=== PATIENT | male | born 1945 | race Caucasian/White ===

== ENCOUNTER 2016-06-07 15:06 | Observation (INO) | payer MEDICARE ==
--- NOTE | ~2016-06-07 | HP ---
History And Physical [id number] [place]. [address] NAME: FLOR PELAEZ : 45 STATUS : ADM IN [facility]#: [id number] AGE: 71 ADM/REG DATE : 06/07/16 MR#: [id number] REPORT SERV DATE: 06/08/16 DICTATED BY: NAHUN DUNAWAY DATE: 06/07/16 REPORT STATUS : Draft TRANSCRIBED BY: MODL DATE: 06/07/16 DATE OF ADMISSION: 06/07/2016 CARDIOLOGY ADMISSION HISTORY AND PHYSICAL IDENTIFYING DATA: The patient is a 71-year-old man with known coronary heart disease, status post previous percutaneous coronary intervention to the right coronary artery. CHIEF COMPLAINT: Substernal pressure/burning-type chest pain of 3 days duration. HISTORY OF PRESENT ILLNESS: Mr. Pelaez is a pleasant 71-year-old man with known coronary heart disease, diabetes, and dyslipidemia. The patient is followed by Dr. Barber. He was in his usual state of health until approximately three days ago. The patient began to experience a midsternal chest pain with radiation to the left arm. He describes this as a burning/pressure type sensation. It is associated with shortness of breath. The chest pain also is similar to the symptoms the patient experienced before his previous percutaneous coronary intervention in the year 2013. The patient reports that he is experiencing chest pain at this time with minimal activity, such as walking back and forth to the bathroom or even laughing. The patient's family brought him to the emergency room. At this time, the patient is chest pain-free. PAST MEDICAL HISTORY: 1. Coronary artery disease, status post previous percutaneous coronary intervention. 2. Type 2 diabetes. 3. Diabetic neuropathy. 4. Anxiety/depression. 5. Diverticulitis. 6. Obstructive sleep apnea. 7. Gout. PAST SURGICAL HISTORY: 1. Previous percutaneous coronary intervention of the right coronary artery with placement of a Xience drug-eluting stent in 2013. 2. Partial colectomy. 3. Cholecystectomy. 4. Appendectomy. 5. Right rotator cuff repair. 6. Excision of melanoma. SOCIAL HISTORY: The patient is an ex-smoker, but quit smoking 20 years ago. He denies alcohol or recreational drug use. He is with one daughter. FAMILY HISTORY: Noncontributory. ALLERGIES: THE PATIENT HAS DOCUMENTED ALLERGIES TO CYCLOBENZAPRINE, PENICILLIN, AND SHELLFISH. History And Physical [address] [place]. [address] NAME: FLOR PELAEZ : 45 STATUS : ADM IN PAT#: [id number] AGE: 71 ADM/REG DATE : 06/07/16 MR#: [id number] REPORT SERV DATE: 06/08/16 DICTATED BY: NAHUN DUNAWAY DATE: 06/07/16 REPORT STATUS : Draft TRANSCRIBED BY: CONCETTA DATE: 06/07/16 HOME MEDICATIONS: According to the most recent clinic note from Dr. Barber, the patient's home medications include the followin. Acetaminophen 1 g p.o. at bedtime. 2. Allopurinol 100 mg p.o. daily. 3. Amlodipine 5 mg p.o. daily. 4. Aspirin 81 mg daily. 5. Benadryl 25 mg twice daily as needed. 6. Betamethasone topical cream 0.05% applied to affected area as needed. 7. Buspirone 15 mg p.o. twice daily. 8. Carvedilol 3.125 mg p.o. twice daily. 9. Fluoxetine 80 mg p.o. daily. 10.Gabapentin 300 mg p.o. four times daily. 11.Glimepiride 2 mg p.o. daily. 12.Hydroxyzine 10 mg twice daily. 13.Potassium chloride 10 mEq extended release daily. 14.Losartan/hydrochlorothiazide 100/25 mg one tablet daily. 15.Lyrica 300 mg two capsules p.o. at bedtime. 16.Nexium 40 mg p.o. daily. 17.Sublingual nitroglycerin as needed. 18.Plavix 75 mg p.o. daily. 19.Simvastatin 20 mg p.o. at bedtime. 20.Singulair 10 mg p.o. daily. 21.Temazepam 60 mg p.o. at bedtime. 22.Triamcinolone cream as needed. 23.Vitamin B12 supplement. 24.Zyrtec 10 mg p.o. daily. REVIEW OF SYSTEMS: A complete 12-system review was performed. This is noncontributory except as noted in the history of present illness above. PHYSICAL EXAMINATION: VITAL SIGNS: Temperature is 98.7 degrees Fahrenheit, blood pressure is 141/65 mmHg, heart rate is 70 beats per minute and regular, respirations 14, and oxygen saturation is 98% on room air. CONSTITUTIONAL: The patient is a morbidly obese white man, who is in no acute distress. EYES: PERRL, EOMI, clear conjunctiva. HEAD/MNT: NCAT with moist mucous membranes and grossly normal hard and soft palate. NECK: Supple with no obvious thyromegaly or lymphadenopathy CARDIOVASCULAR: There is a regular rhythm with a normal S1 and a physiologically split second heart sound. No significant murmurs, rubs, or gallops are noted. PULMONARY: Clear to auscultation bilaterally, no wheezing, rales or rhonchi noted. No dullness to percussion. Non-labored. ABDOMINAL: Soft, non-tender, non-distended with no hepatosplenomegaly noted. EXTREMITIES: There is trace edema at the ankles with no significant clubbing or cyanosis. There is a 2+ right radial pulse. History And Physical [address] [address] NAME: FLOR PELAEZ : 45 STATUS : ADM IN [facility]#: [id number] AGE: 71 ADM/REG DATE : 06/07/16 MR#: [id number] REPORT SERV DATE: 06/08/16 DICTATED BY: NAHUN DUNAWAY DATE: 06/07/16 REPORT STATUS : Draft TRANSCRIBED BY: CONCETTA DATE: 06/07/16 MUSCULOSKELETAL: Grossly normal strength and range of motion in all extremities INTEGUMENTARY: Skin appears intact with no bruises, wounds or active lesions noted NEURO/PSYC: Alert and oriented x3, with no dysarthria, facial droop or lateralizing weakness noted. 12-LEAD EKG: The 12-lead EKG shows normal sinus rhythm with poor anterior R-wave progression suggestive of a previous anterior NV. There are nonspecific ST/T-wave abnormalities. LABORATORY DATA: Electrolytes show a sodium of 141, potassium 3.6, chloride 105, BUN 15, creatinine is 0.8, glucose is 133, calcium 8.8, magnesium 2.2. Cell count show a white blood cell count of 7.5, hemoglobin 13.8, hematocrit 41, and platelets 207. INR is 1.1. Troponin I is less than 0.02. ASSESSMENT AND PLAN: 1. Unstable angina: The patient is having typical symptoms of three days duration. He has multiple cardiovascular risk factors and known coronary heart disease. I feel coronary angiography is warranted. The patient agrees to proceed with coronary angiography and left heart catheterization. A right radial approach will be utilized. The patient has no overt contraindications to percutaneous coronary intervention. He has no history of bleeding disorders, and no elective surgery scheduled within the next year. 2. Type 2 diabetes: We will continue home medication regimen and sliding scale insulin. 3. Hypertension: The patient's blood pressure appears well-controlled at this time. Further recommendations pending results of the patient's cardiac catheterization. [facility] Nahun Dunaway MD / [id number] CC: MD Junior Quezada MD
[2016-06-07 13:30] LABS: BASOPHILS 0.9 %; BASOPHILS ABSOLUTE 0.07 10/3/uL (0.0-0.16); EOSINOPHILS 4.1 %; EOSINOPHILS ABSOLUTE 0.31 10/3/uL (0.0-0.53); ER CBC TAT 0 Hrs 05 Mins; HEMATOCRIT 41.4 % (40.0-51.0); HEMOGLOBIN 13.8 g/dL (13.6-17.8); IMMATURE GRANULOCYTES 0.1 %; IMMATURE GRANULOCYTES ABSOLUTE 0.01 10/3/uL (0.0-0.11); LYMPHOCYTES 26.1 %; LYMPHOCYTES ABSOLUTE 1.95 10/3/uL (0.67-4.30); MANUAL DIFF NO %; MEAN CORPUS HGB CONC 33.3 g/dL (32.0-36.0); MEAN CORPUSCULAR HEMOGLOB 27.4 pg (26.0-34.0); MEAN CORPUSCULAR VOLUME 82.1 fL (80-100); MEAN PLATELET VOLUME 11.9 fL (9.2-13.0); MONOCYTES 11.5 %; MONOCYTES ABSOLUTE 0.86 10/3/uL (0.21-1.20); NEUTROPHILS 57.3 %; NEUTROPHILS ABSOLUTE 4.27 10/3/uL (2.02-8.40); PLATELET COUNT 207 10/3/uL (150-400); RBC DISTRIBUTION WIDTH 14.7 % (12.0-16.0); RED CELL COUNT 5.04 10/6/uL (4.7-6.1); WHITE BLOOD CELLS 7.5 10/3/uL (4.5-10.5)
[2016-06-07 13:36] LABS: INTERNATIONAL NORMAL RATI 1.1 UNITS (-)
[2016-06-07 13:46] LABS: BUN (BLOOD UREA NITROGEN) 15 MG/DL (6-23); CALCIUM, SERUM 8.8 MG/DL (8.5-10.4); CHEST PAIN PROFILE TAT 0 Hrs 21 Mins; CHLORIDE, SERUM 105 MMOL/L (96-112); CO2 (CARBON DIOXIDE) 27 MMOL/L (24-34); GFR AFRICAN AMERICAN 104 ML/MIN (>=60); GFR NON AFRICAN AMERICAN 90 ML/MIN (>=60); GLUCOSE, SERUM 133 MG/DL (60-99); POTASSIUM, SERUM 3.6 MMOL/L (3.5-5.3); SODIUM, SERUM 141 MMOL/L (135-148); TROPONIN I <0.02 NG/ML (<0.05)
[~2016-06-07 15:06] MED LIST: ACET500CAP PO; ALLEGRA180 PO; AMARYL2 PO; ASAB PO; B12250T PO; BRILINTA90 MG PO; COREG3 PO; GLUCPH PO; HYDROMET1 ML PO; HYZAAR 100/25 T1 TAB PO; JANUVIA100 MG PO; KDUR10 PO; LYRICA150 MG PO; LYRICA300 MG PO; MICARDIS H80 MG/25 M PO; NEUR600 PO; NITROSTAT0.4 MG SL; NORV25 PO; NORV5 PO; PRILO PO; PRILOSEC40 MG PO; PROZAC40 MG PO; RESTORIL30 MG PO; SINGULAIR1 PO; VITAMIN B-122500 MCG SL; ZOCOR20 PO
[2016-06-07] MEDS ORDERED: PLAVIX PO (16:19)
[2016-06-07] MEDS ORDERED: LYRICA300 MG PO (16:20)
[2016-06-07] MEDS ORDERED: COREG3 PO (16:20)
[2016-06-07] MEDS ORDERED: ACET500CAP PO (16:21)
[2016-06-07] MEDS ORDERED: PROZAC40 MG PO (16:22)
[2016-06-07] MEDS ORDERED: ASAB PO (16:22)
[2016-06-07] MEDS ORDERED: VITAMIN B-122500 MCG SL (16:22)
[2016-06-07] MEDS ORDERED: ZOCOR20 PO (16:23)
[2016-06-07] MEDS ORDERED: HYZAAR 100/25 T1 TAB PO (16:23)
[2016-06-07] MEDS ORDERED: NEUR300 PO (16:28)
[2016-06-07] MEDS ORDERED: K-TABS10 MEQ PO (16:28)
[2016-06-07] MEDS ORDERED: BEN25 PO (16:29)
[2016-06-07] MEDS ORDERED: DIPROSONE CREAM15 GM TOP (16:29)
[2016-06-07] MEDS ORDERED: ZYRTEC ALLGY10 MG PO (16:29)
[2016-06-07] MEDS ORDERED: BUSPAR15 M1 PO (16:30)
[2016-06-07] MEDS ORDERED: AMARYL2 PO (16:30)
[2016-06-07] MEDS ORDERED: Z100 PO (16:30)
[2016-06-07] MEDS ORDERED: RESTORIL30 MG PO (16:30)
[2016-06-07] MEDS ORDERED: PRILO PO (16:30)
[2016-06-07 16:37] LABS: CHOL/HDL RATIO(NOT ORDER) 4.1 (0-5); CHOLESTEROL 149 MG/DL (< 200); HDL CHOLESTEROL 36 MG/DL (> 39); LDL CHOLESTEROL 54 MG/DL (< 130); NON-HDL CHOLESTEROL 113 MG/DL (< 160); TRIGLYCERIDE 297 MG/DL (< 150)
[2016-06-08 05:15] LABS: BASOPHILS 0.8 %; BASOPHILS ABSOLUTE 0.05 10/3/uL (0.0-0.16); EOSINOPHILS ABSOLUTE 0.38 10/3/uL (0.0-0.53); HEMATOCRIT 39.7 % (40.0-51.0); HEMOGLOBIN 12.8 g/dL (13.6-17.8); IMMATURE GRANULOCYTES 0.2 %; IMMATURE GRANULOCYTES ABSOLUTE 0.01 10/3/uL (0.0-0.11); LYMPHOCYTES 25.1 %; MANUAL DIFF NO %; MEAN CORPUS HGB CONC 32.2 g/dL (32.0-36.0); MEAN CORPUSCULAR HEMOGLOB 26.6 pg (26.0-34.0); MEAN CORPUSCULAR VOLUME 82.4 fL (80-100); MEAN PLATELET VOLUME 11.7 fL (9.2-13.0); MONOCYTES 11.6 %; MONOCYTES ABSOLUTE 0.74 10/3/uL (0.21-1.20); NEUTROPHILS 56.3 %; NEUTROPHILS ABSOLUTE 3.59 10/3/uL (2.02-8.40); PLATELET COUNT 181 10/3/uL (150-400); RBC DISTRIBUTION WIDTH 14.7 % (12.0-16.0); RED CELL COUNT 4.82 10/6/uL (4.7-6.1); WHITE BLOOD CELLS 6.4 10/3/uL (4.5-10.5)
[2016-06-08 05:29] LABS: BUN (BLOOD UREA NITROGEN) 17 MG/DL (6-23); CALCIUM, SERUM 8.8 MG/DL (8.5-10.4); CHLORIDE, SERUM 105 MMOL/L (96-112); CHOL/HDL RATIO(NOT ORDER) 3.3 (0-5); CHOLESTEROL 123 MG/DL (< 200); CO2 (CARBON DIOXIDE) 28 MMOL/L (24-34); CREATININE 0.77 MG/DL (0.70-1.30); GFR AFRICAN AMERICAN 106 ML/MIN (>=60); GFR NON AFRICAN AMERICAN 91 ML/MIN (>=60); HDL CHOLESTEROL 37 MG/DL (> 39); LDL CHOLESTEROL 46 MG/DL (< 130); NON-HDL CHOLESTEROL 86 MG/DL (< 160); POTASSIUM, SERUM 3.3 MMOL/L (3.5-5.3); SODIUM, SERUM 142 MMOL/L (135-148)
[2016-06-08 05:30] LABS: GLUCOSE, SERUM 99 MG/DL (60-99); TRIGLYCERIDE 201 MG/DL (< 150)
[2016-06-08] MEDS ORDERED: LIPITOR40 PO (07:36)
== END 2016-06-08 08:00 | disposition home or self-care (01) ==
LOC: ER 15:06 → SSU1 16:04
PROVIDERS: Hospitalist; Internal Medicine Cardiovascular Disease
DX: I25.110 Atherosclerotic heart disease of native coronary artery with unstable angina pectoris (principal); I24.9 Acute ischemic heart disease, unspecified; E11.40 Type 2 diabetes mellitus with diabetic neuropathy, unspecified; F41.9 Anxiety disorder, unspecified; F32.9 Major depressive disorder, single episode, unspecified; G47.33 Obstructive sleep apnea (adult) (pediatric); M10.9 Gout, unspecified; Z95.5 Presence of coronary angioplasty implant and graft; Z90.49 Acquired absence of other specified parts of digestive tract; Z98.890 Other specified postprocedural states; Z87.891 Personal history of nicotine dependence; Z88.0 Allergy status to penicillin; Z88.8 Allergy status to other drugs, medicaments and biological substances; Z79.82 Long term (current) use of aspirin; Z79.899 Other long term (current) drug therapy; Z79.01 Long term (current) use of anticoagulants
CPT/HCPCS: 71020; 80048; 80061; 82962; 83735; 84484; 85025; 85347; 85610; 85730; 93005; 93458; 93571; 99152; 99153; 99291; A9270-GY; C1760; C1769; C1887; C1894; G0378; J0153; J2250; J3010; Q9967